=== PATIENT | male | born 1935 | race Caucasian/White ===

== ENCOUNTER → 2016-06-06 | Outpatient (CLI) | payer MEDICARE ==
[~2016-06-06] MED LIST: AMLO5TAB2 PO; ATOR20TA9 PO; BENA40TA2 PO; DICY10CA3 PO; FLUT9.9S NAS; FURO40TA6 PO; HYDR-3240 PO; INSU100I13 SQ-INSULIN; METF500T4 PO; METO10TA82 PO; METO25TA35 PO; OMNIPAQUE 350 MG/ML, 75ML BOTTLE ONE; PANT40TA5 PO; PIOG45TA4 PO; PROM50TA4 PO; SERT50TA5 PO; TAMS0.4C2 PO
== END | disposition home or self-care (01) ==
LOC: CFH 12:52
PROVIDERS: ATTEND Nurse Practitioner
DX: R91.1 Solitary pulmonary nodule (principal); M50.33 Other cervical disc degeneration, cervicothoracic region; K57.30 Diverticulosis of large intestine without perforation or abscess without bleeding; D73.89 Other diseases of spleen; M25.78 Osteophyte, vertebrae; Z90.49 Acquired absence of other specified parts of digestive tract
CPT/HCPCS: 71260; Q9967

== ENCOUNTER → 2016-06-22 | Outpatient (CLI) | payer MEDICARE ==
[~2016-06-22] MED LIST changes: -OMNIPAQUE 350 MG/ML, 75ML BOTTLE ONE
== END | disposition home or self-care (01) ==
LOC: CFH 09:33
PROVIDERS: ATTEND Internal Medicine Gastroenterology
DX: R10.13 Epigastric pain (principal); K31.84 Gastroparesis; R11.0 Nausea; K52.9 Noninfective gastroenteritis and colitis, unspecified; E11.9 Type 2 diabetes mellitus without complications; I50.9 Heart failure, unspecified; M47.896 Other spondylosis, lumbar region
CPT/HCPCS: 74000

== ENCOUNTER 2017-02-03 10:27 | Inpatient (IN) | payer MEDICARE ==
[~2017-02-03] VITALS: Ht 177.8 cm; Wt 79.6 kg
[2017-02-03] MEDS ORDERED: SODIUM CHLORIDE FLUSH 10ML SYR IVF ONE (11:00)
[2017-02-03] MEDS ORDERED: RANI150T4 PO (11:07)
[2017-02-03] MEDS ORDERED: CARV12.52 PO (11:07)
[2017-02-03] MEDS ORDERED: LISI40TA PO (11:07)
[2017-02-03 11:31] LABS: HEMATOCRIT 49.5 % (39.2-51.8); HEMOGLOBIN 16.4 g/dL (13.7-18.0); WHITE BLOOD COUNT 6.8 x10^3/uL (3.4-10)
[2017-02-03 11:36] LABS: ASPARTATE AMINO TRANSFERASE 17 U/L (15-37); BLOOD UREA NITROGEN 12 mg/dL (7-18)
[2017-02-03 11:40] LABS: IS PT STATUS REG ER OR PRE ER? YES
[2017-02-03] MEDS ORDERED: MAALOX/HYOSCYAMINE/LIDOCAINE 45 ML BTL ONE (12:07)
[2017-02-03] MEDS ORDERED: MAALOX/HYOSCYAMINE/LIDOCAINE 45 ML BTL PO ONE (12:30)
[2017-02-03] MEDS ORDERED: OMNIPAQUE 350 MG/ML, 100ML BOTTLE ONE (13:15)
[2017-02-03] MEDS ORDERED: HEPARIN 25,000 UNITS/500ML PMX 500 ML ONE (13:54)
[2017-02-03] MEDS ORDERED: HEPARIN 5,000 UNITS/ML, 1ML ONE (13:54)
[2017-02-03] MEDS ORDERED: HEPARIN 5,000 UNITS/ML, 1ML IV ONE (14:00)
[2017-02-03] MEDS: HEPARIN 25,000 UNITS/500ML PMX 500 ML IV PRN (14:29)
[2017-02-03 15:41] VITALS: BP 156/85
[2017-02-03] MEDS ORDERED: LABETALOL 5MG/ML, 20ML IVPush PRN (16:00)
[2017-02-03] MEDS ORDERED: DEXTROSE 4 GM TAB.CHEW PO PRN (16:00)
[2017-02-03] MEDS ORDERED: morphine SULFATE 10 MG/ML, 1ML IVPush PRN (16:00)
[2017-02-03] MEDS ORDERED: POLYETHYLENE GLYCOL 17 GM PACKET PO PRN (16:00)
[2017-02-03] MEDS ORDERED: ENALAPRILAT 1.25 MG/ML, 2ML IVPush PRN (16:00)
[2017-02-03] MEDS ORDERED: ACETAMINOPHEN 325 MG TABLET PO PRN (16:00)
[2017-02-03] MEDS ORDERED: DEXTROSE 50%, 50ML SYRINGE IVPush PRN (16:00)
[2017-02-03] MEDS ORDERED: GLUCAGON 1 MG IM PRN (16:00)
[2017-02-03] MEDS: DICYCLOMINE 10 MG CAPSULE PO SCH ×2 (17:36→21:43)
[2017-02-03] MEDS: SUCRALFATE 1 GM/10 ML UDC PO SCH ×2 (17:36→21:43)
[2017-02-03] MEDS: HYDROcodone/APAP 5/325 TABLET PO PRN ×2 (18:49→23:31)
[2017-02-03] MEDS: INSULIN ASPART 100 UNITS/ML, PEN SQ-INSULIN SCH ×2 (18:50→21:39)
[2017-02-03 20:56] VITALS: BP 152/75
[2017-02-03] MEDS: INSULIN GLARGINE HUM REC ANLOG 20 UNIT SQ-INSULIN SCH (21:00)
[2017-02-03] MEDS: CARVEDILOL 12.5 MG TABLET PO SCH (21:00)
[2017-02-03] MEDS: HEPARIN 5,000 UNITS/ML, 1ML IV PRN (21:33)
[2017-02-03] MEDS: ATORVASTATIN 20 MG TABLET PO SCH (21:42)
[2017-02-03] MEDS: SODIUM CHLORIDE FLUSH 10ML SYR IVF SCH (21:43)
[2017-02-03] MEDS: PROMETHAZINE 25MG TABLET PO PRN (21:46)
[2017-02-03] MEDS: MAALOX/HYOSCYAMINE/LIDOCAINE 45 ML BTL PO PRN (23:37)
[2017-02-04 02:51] VITALS: BP 123/62
[2017-02-04 04:10] LABS: HEMATOCRIT 44.4 % (39.2-51.8); HEMOGLOBIN 14.9 g/dL (13.7-18.0); WHITE BLOOD COUNT 6.9 x10^3/uL (3.4-10)
[2017-02-04 04:17] LABS: BLOOD UREA NITROGEN 15 mg/dL (7-18)
[2017-02-04 04:21] LABS: ASPARTATE AMINO TRANSFERASE 17 U/L (15-37)
[2017-02-04] MEDS: HEPARIN 5,000 UNITS/ML, 1ML IV PRN ×2 (04:50→12:01)
[2017-02-04] MEDS ORDERED: POTASSIUM CHLORIDE 40 MEQ in SODIUM CHLORIDE 0.9% 500 ML IV ONE (08:00)
[2017-02-04 08:07] VITALS: BP 145/79
[2017-02-04] MEDS: SUCRALFATE 1 GM/10 ML UDC PO SCH ×4 (08:10→23:03)
[2017-02-04] MEDS: PANTOPROZOLE 40MG TABLET PO SCH (08:10)
[2017-02-04] MEDS: INSULIN ASPART 100 UNITS/ML, PEN SQ-INSULIN SCH ×4 (08:35→23:05)
[2017-02-04] MEDS: ONDANSETRON 2MG/ML, 2ML IVPush PRN ×2 (08:37→16:28)
[2017-02-04] MEDS: LISINOPRIL 20 MG TABLET PO SCH (08:42)
[2017-02-04] MEDS: DOCUSATE 100 MG CAPSULE PO SCH (08:42)
[2017-02-04] MEDS: DICYCLOMINE 10 MG CAPSULE PO SCH ×3 (08:42→23:04)
[2017-02-04] MEDS: TAMSULOSIN 0.4 MG CAP.ER.24H PO SCH (08:43)
[2017-02-04] MEDS: AMLODIPINE 5 MG TABLET PO SCH (08:43)
[2017-02-04] MEDS: SODIUM CHLORIDE FLUSH 10ML SYR IVF SCH ×2 (08:44→23:03)
[2017-02-04] MEDS: FLUTICASONE NASAL SPRAY 16GM NAS SCH (09:00)
[2017-02-04] MEDS: CARVEDILOL 12.5 MG TABLET PO SCH ×2 (09:00→23:04)
[2017-02-04] MEDS: HEPARIN 25,000 UNITS/500ML PMX 500 ML IV PRN (13:55)
[2017-02-04 14:09] VITALS: BP 123/62
[2017-02-04] MEDS: Enoxaparin 1 mg/kg protocol SQ SCH (15:30)
[2017-02-04] MEDS: ENOXAPARIN 80 MG/0.8 ML SQ SCH (16:26)
[2017-02-04] MEDS ORDERED: metFORMIN 500 MG TABLET PO SCH (17:00)
[2017-02-04] MEDS: HYDROcodone/APAP 5/325 TABLET PO PRN ×2 (18:15→23:04)
[2017-02-04 20:00] VITALS: BP 154/73
[2017-02-04] MEDS: INSULIN GLARGINE HUM REC ANLOG 20 UNIT SQ-INSULIN SCH (23:04)
[2017-02-04] MEDS: ATORVASTATIN 20 MG TABLET PO SCH (23:04)
[2017-02-05 02:00] VITALS: BP 136/67
[2017-02-05] MEDS: Enoxaparin 1 mg/kg protocol SQ SCH ×2 (03:30→15:30)
[2017-02-05] MEDS: ENOXAPARIN 80 MG/0.8 ML SQ SCH ×2 (04:35→16:52)
[2017-02-05 05:44] LABS: HEMATOCRIT 42.3 % (39.2-51.8); HEMOGLOBIN 14.5 g/dL (13.7-18.0); WHITE BLOOD COUNT 5.5 x10^3/uL (3.4-10)
[2017-02-05 05:51] LABS: ASPARTATE AMINO TRANSFERASE 14 U/L (15-37); BLOOD UREA NITROGEN 13 mg/dL (7-18)
[2017-02-05] MEDS: SUCRALFATE 1 GM/10 ML UDC PO SCH ×4 (08:03→20:35)
[2017-02-05] MEDS: DOCUSATE 100 MG CAPSULE PO SCH (08:03)
[2017-02-05] MEDS: PANTOPROZOLE 40MG TABLET PO SCH (08:03)
[2017-02-05] MEDS: DICYCLOMINE 10 MG CAPSULE PO SCH ×3 (08:03→20:36)
[2017-02-05] MEDS: ONDANSETRON 2MG/ML, 2ML IVPush PRN ×2 (08:03→21:39)
[2017-02-05] MEDS: LISINOPRIL 20 MG TABLET PO SCH (08:03)
[2017-02-05] MEDS: INSULIN ASPART 100 UNITS/ML, PEN SQ-INSULIN SCH ×4 (08:04→20:35)
[2017-02-05] MEDS: AMLODIPINE 5 MG TABLET PO SCH (08:04)
[2017-02-05] MEDS: TAMSULOSIN 0.4 MG CAP.ER.24H PO SCH (08:04)
[2017-02-05] MEDS: FLUTICASONE NASAL SPRAY 16GM NAS SCH (09:00)
[2017-02-05 09:05] VITALS: BP 144/82
[2017-02-05] MEDS: CARVEDILOL 12.5 MG TABLET PO SCH ×2 (10:27→20:36)
[2017-02-05] MEDS: SODIUM CHLORIDE FLUSH 10ML SYR IVF SCH ×2 (10:27→20:37)
[2017-02-05 13:52] VITALS: BP 132/75
[2017-02-05] MEDS: BISACODYL 10 MG SUPP PR PRN (15:02)
[2017-02-05] MEDS: HYDROcodone/APAP 5/325 TABLET PO PRN ×2 (17:02→21:31)
[2017-02-05 20:23] VITALS: BP 172/87
[2017-02-05] MEDS: INSULIN GLARGINE HUM REC ANLOG 20 UNIT SQ-INSULIN SCH (20:35)
[2017-02-05] MEDS: ATORVASTATIN 20 MG TABLET PO SCH (20:36)
[2017-02-06 02:40] VITALS: BP 149/84
[2017-02-06] MEDS: ENOXAPARIN 80 MG/0.8 ML SQ SCH ×2 (05:11→17:12)
[2017-02-06] MEDS: INSULIN ASPART 100 UNITS/ML, PEN SQ-INSULIN SCH ×4 (07:00→20:33)
[2017-02-06 07:34] VITALS: BP 165/76
[2017-02-06] MEDS: ONDANSETRON 2MG/ML, 2ML IVPush PRN (08:06)
[2017-02-06] MEDS: TAMSULOSIN 0.4 MG CAP.ER.24H PO SCH (09:00)
[2017-02-06] MEDS ORDERED: REGADENOSON 0.4 MG/5 ML SYRINGE ONE (09:30)
[2017-02-06] MEDS: HYDROcodone/APAP 5/325 TABLET PO PRN ×3 (11:23→21:22)
[2017-02-06] MEDS: SUCRALFATE 1 GM/10 ML UDC PO SCH ×4 (11:24→20:33)
[2017-02-06] MEDS: PROMETHAZINE 25MG TABLET PO PRN ×2 (11:24→17:18)
[2017-02-06] MEDS: FLUTICASONE NASAL SPRAY 16GM NAS SCH (11:24)
[2017-02-06] MEDS: LISINOPRIL 20 MG TABLET PO SCH (11:25)
[2017-02-06] MEDS: DICYCLOMINE 10 MG CAPSULE PO SCH ×3 (11:25→20:33)
[2017-02-06] MEDS: DOCUSATE 100 MG CAPSULE PO SCH (11:26)
[2017-02-06] MEDS: CARVEDILOL 12.5 MG TABLET PO SCH (11:26)
[2017-02-06] MEDS: AMLODIPINE 5 MG TABLET PO SCH (11:26)
[2017-02-06] MEDS: SODIUM CHLORIDE FLUSH 10ML SYR IVF SCH ×2 (11:27→20:34)
[2017-02-06] MEDS: PANTOPROZOLE 40MG TABLET PO SCH (11:27)
[2017-02-06 15:17] VITALS: BP 147/67
[2017-02-06] MEDS: CARVEDILOL 25 MG TABLET PO SCH (17:12)
[2017-02-06 19:23] VITALS: BP_SYST 56
[2017-02-06] MEDS: ATORVASTATIN 20 MG TABLET PO SCH (20:33)
[2017-02-06] MEDS: INSULIN GLARGINE HUM REC ANLOG 20 UNIT SQ-INSULIN SCH (20:34)
[2017-02-07 03:30] VITALS: BP 143/75
[2017-02-07] MEDS: ENOXAPARIN 80 MG/0.8 ML SQ SCH ×3 (05:19→21:12)
[2017-02-07] MEDS: CARVEDILOL 25 MG TABLET PO SCH ×3 (05:19→23:50)
[2017-02-07 05:55] LABS: HEMATOCRIT 42.2 % (39.2-51.8); HEMOGLOBIN 14.3 g/dL (13.7-18.0); WHITE BLOOD COUNT 5.9 x10^3/uL (3.4-10)
[2017-02-07 06:14] LABS: BLOOD UREA NITROGEN 13 mg/dL (7-18)
[2017-02-07] MEDS: DOCUSATE 100 MG CAPSULE PO SCH (07:42)
[2017-02-07] MEDS: AMLODIPINE 5 MG TABLET PO SCH (07:42)
[2017-02-07] MEDS: TAMSULOSIN 0.4 MG CAP.ER.24H PO SCH (07:42)
[2017-02-07] MEDS: INSULIN ASPART 100 UNITS/ML, PEN SQ-INSULIN SCH ×4 (07:42→20:46)
[2017-02-07] MEDS: PANTOPROZOLE 40MG TABLET PO SCH (07:42)
[2017-02-07] MEDS: FLUTICASONE NASAL SPRAY 16GM NAS SCH (07:43)
[2017-02-07] MEDS: LISINOPRIL 20 MG TABLET PO SCH (07:43)
[2017-02-07] MEDS: SUCRALFATE 1 GM/10 ML UDC PO SCH ×5 (07:43→23:51)
[2017-02-07] MEDS: DICYCLOMINE 10 MG CAPSULE PO SCH ×3 (07:43→20:45)
[2017-02-07] MEDS: SODIUM CHLORIDE FLUSH 10ML SYR IVF SCH ×2 (07:43→20:45)
[2017-02-07 08:00] VITALS: BP 141/76
[2017-02-07 14:35] VITALS: BP 112/59
[2017-02-07] MEDS: HYDROcodone/APAP 5/325 TABLET PO PRN ×2 (14:47→20:45)
[2017-02-07 20:01] VITALS: BP 121/61
[2017-02-07] MEDS: INSULIN GLARGINE HUM REC ANLOG 20 UNIT SQ-INSULIN SCH (20:39)
[2017-02-07] MEDS: ATORVASTATIN 20 MG TABLET PO SCH (20:48)
[2017-02-08 01:42] VITALS: BP 154/71
[2017-02-08 05:34] LABS: HEMATOCRIT 44.4 % (39.2-51.8); WHITE BLOOD COUNT 5.9 x10^3/uL (3.4-10)
[2017-02-08 05:48] LABS: ASPARTATE AMINO TRANSFERASE 37 U/L (15-37); BLOOD UREA NITROGEN 12 mg/dL (7-18)
[2017-02-08] MEDS: INSULIN ASPART 100 UNITS/ML, PEN SQ-INSULIN SCH ×4 (07:00→22:10)
[2017-02-08] MEDS: PANTOPROZOLE 40MG TABLET PO SCH (07:30)
[2017-02-08 07:41] VITALS: BP 154/83
[2017-02-08] MEDS: SODIUM CHLORIDE FLUSH 10ML SYR IVF SCH ×2 (08:53→22:11)
[2017-02-08] MEDS: DICYCLOMINE 10 MG CAPSULE PO SCH ×3 (08:53→22:09)
[2017-02-08] MEDS: FLUTICASONE NASAL SPRAY 16GM NAS SCH (08:53)
[2017-02-08] MEDS: AMLODIPINE 5 MG TABLET PO SCH (08:54)
[2017-02-08] MEDS: TAMSULOSIN 0.4 MG CAP.ER.24H PO SCH (08:54)
[2017-02-08] MEDS: LISINOPRIL 20 MG TABLET PO SCH (08:54)
[2017-02-08] MEDS: DOCUSATE 100 MG CAPSULE PO SCH (08:54)
[2017-02-08] MEDS ORDERED: POTASSIUM CHLORIDE 40 MEQ in SODIUM CHLORIDE 0.9% 500 ML IV ONE (09:00)
[2017-02-08] MEDS ORDERED: PROPOFOL 10 MG/ML, 20ML ONE (09:08)
[2017-02-08] MEDS ORDERED: ROCURONIUM 10 MG/ML,10ML ONE (09:08)
[2017-02-08] MEDS ORDERED: SUCCINYLCHOLINE 20 MG/ML, 10ML ONE (09:10)
[2017-02-08] MEDS ORDERED: FENTANYL PF 100 MCG/2ML ONE (09:15)
[2017-02-08] MEDS ORDERED: ACETAMINOPHEN 325 MG TABLET PO PRN (09:30)
[2017-02-08] MEDS ORDERED: HYDROcodone/APAP 7.5-325MG/15ML UDC PO PRN (09:30)
[2017-02-08] MEDS ORDERED: FENTANYL PF 100 MCG/2ML IV PRN (09:30)
[2017-02-08] MEDS ORDERED: HYDROmorphone 1 MG/ML, 1ML IV PRN (09:30)
[2017-02-08] MEDS ORDERED: hydrALAzine 20 MG/ML, 1ML IV PRN (09:30)
[2017-02-08] MEDS ORDERED: METOCLOPRAMIDE 5 MG/ML, 2ML IV PRN (09:30)
[2017-02-08] MEDS ORDERED: ALBUTEROL SULFATE 2.5 MG/3 ML NPPB PRN (09:30)
[2017-02-08] MEDS ORDERED: LABETALOL 5MG/ML, 20ML IV PRN (09:30)
[2017-02-08] MEDS ORDERED: OXYcodone 5 MG/5 ML ORAL.SOL UDC PO PRN (09:30)
[2017-02-08] MEDS ORDERED: METOPROLOL 1 MG/ML, 5ML IV PRN (09:30)
[2017-02-08] MEDS ORDERED: EPHEDRINE 50 MG/ML, 1ML IVPush PRN (09:30)
[2017-02-08] MEDS ORDERED: ONDANSETRON 2MG/ML, 2ML IVPush PRN (09:30)
[2017-02-08] MEDS ORDERED: EPINEPHRINE 1 MG/ML, 1ML ONE (10:23)
[2017-02-08] MEDS ORDERED: ONDANSETRON 2MG/ML, 2ML ONE (10:24)
[2017-02-08] MEDS ORDERED: DEXAMETHASONE 4 MG/ML, 1ML ONE (10:24)
[2017-02-08] MEDS ORDERED: GLYCOPYRROLATE 0.4 MG/2 ML, 2ML ONE ×2 (10:24)
[2017-02-08 11:39] VITALS: BP 143/75
[2017-02-08] MEDS: SUCRALFATE 1 GM/10 ML UDC PO SCH ×3 (11:51→22:10)
[2017-02-08 15:21] VITALS: BP 164/91
[2017-02-08] MEDS: ENOXAPARIN 80 MG/0.8 ML SQ SCH (17:05)
[2017-02-08] MEDS: CARVEDILOL 25 MG TABLET PO SCH (17:05)
[2017-02-08] MEDS: HYDROcodone/APAP 5/325 TABLET PO PRN ×2 (17:14→22:09)
[2017-02-08 17:58] VITALS: BP 152/73
[2017-02-08 19:50] VITALS: BP 146/81
[2017-02-08] MEDS: INSULIN GLARGINE HUM REC ANLOG 20 UNIT SQ-INSULIN SCH (21:00)
[2017-02-08] MEDS: ATORVASTATIN 20 MG TABLET PO SCH (22:12)
[2017-02-09 02:04] VITALS: BP 136/65
[2017-02-09] MEDS: ENOXAPARIN 80 MG/0.8 ML SQ SCH ×2 (05:22→18:07)
[2017-02-09] MEDS: CARVEDILOL 25 MG TABLET PO SCH ×2 (06:31→18:05)
[2017-02-09] MEDS: SUCRALFATE 1 GM/10 ML UDC PO SCH ×4 (06:31→21:00)
[2017-02-09] MEDS: INSULIN ASPART 100 UNITS/ML, PEN SQ-INSULIN SCH ×4 (08:09→21:28)
[2017-02-09] MEDS: DOCUSATE 100 MG CAPSULE PO SCH ×2 (09:00→15:03)
[2017-02-09] MEDS: TAMSULOSIN 0.4 MG CAP.ER.24H PO SCH (09:03)
[2017-02-09] MEDS: DICYCLOMINE 10 MG CAPSULE PO SCH ×3 (09:03→21:28)
[2017-02-09] MEDS: AMLODIPINE 5 MG TABLET PO SCH (09:03)
[2017-02-09] MEDS: FLUTICASONE NASAL SPRAY 16GM NAS SCH (09:04)
[2017-02-09] MEDS: PANTOPROZOLE 40MG TABLET PO SCH (09:04)
[2017-02-09] MEDS: SODIUM CHLORIDE FLUSH 10ML SYR IVF SCH ×2 (09:04→21:28)
[2017-02-09] MEDS: LISINOPRIL 20 MG TABLET PO SCH (09:04)
[2017-02-09 09:12] VITALS: BP 137/71
[2017-02-09] MEDS ORDERED: HEPARIN 5,000 UNITS/ML, 1ML IV PRN (12:30)
[2017-02-09] MEDS ORDERED: HEPARIN 5,000 UNITS/ML, 1ML IV ONE (12:30)
[2017-02-09] MEDS ORDERED: HEPARIN 25,000 UNITS/500ML PMX 500 ML IV PRN (12:30)
[2017-02-09 13:08] LABS: HEMOGLOBIN 16.2 g/dL (13.7-18.0); WHITE BLOOD COUNT 8.6 x10^3/uL (3.4-10)
[2017-02-09 13:14] LABS: ANTI-Xa-UNFRACTIONATED HEP 0.29 IU/mL (0.30-0.70)
[2017-02-09 13:19] LABS: ASPARTATE AMINO TRANSFERASE 30 U/L (15-37); BLOOD UREA NITROGEN 16 mg/dL (7-18)
[2017-02-09 14:38] VITALS: BP 144/71
[2017-02-09] MEDS: HYDROcodone/APAP 5/325 TABLET PO PRN ×2 (17:05→21:36)
[2017-02-09] MEDS ORDERED: WARFARIN 10 MG TABLET PO-COUM SCH (18:00)
[2017-02-09 19:05] VITALS: BP 124/67
[2017-02-09] MEDS: INSULIN GLARGINE HUM REC ANLOG 20 UNIT SQ-INSULIN SCH (21:00)
[2017-02-09] MEDS: ONDANSETRON 2MG/ML, 2ML IVPush PRN (21:27)
[2017-02-09] MEDS: ATORVASTATIN 20 MG TABLET PO SCH (21:28)
[2017-02-09] MEDS: BISACODYL 10 MG SUPP PR PRN (21:35)
[2017-02-10 02:02] VITALS: BP 150/79
[2017-02-10] MEDS: CARVEDILOL 25 MG TABLET PO SCH ×2 (05:42→16:58)
[2017-02-10] MEDS: ENOXAPARIN 80 MG/0.8 ML SQ SCH ×2 (05:43→16:58)
[2017-02-10] MEDS: FLUTICASONE NASAL SPRAY 16GM NAS SCH (09:00)
[2017-02-10] MEDS: SUCRALFATE 1 GM/10 ML UDC PO SCH ×4 (09:10→20:30)
[2017-02-10] MEDS: LISINOPRIL 20 MG TABLET PO SCH (09:14)
[2017-02-10] MEDS: PANTOPROZOLE 40MG TABLET PO SCH (09:14)
[2017-02-10] MEDS: DICYCLOMINE 10 MG CAPSULE PO SCH ×3 (09:14→20:30)
[2017-02-10] MEDS: INSULIN ASPART 100 UNITS/ML, PEN SQ-INSULIN SCH ×4 (09:14→20:32)
[2017-02-10] MEDS: SODIUM CHLORIDE FLUSH 10ML SYR IVF SCH ×2 (09:15→20:15)
[2017-02-10] MEDS: ONDANSETRON 2MG/ML, 2ML IVPush PRN ×2 (09:15→20:31)
[2017-02-10] MEDS: TAMSULOSIN 0.4 MG CAP.ER.24H PO SCH (09:15)
[2017-02-10] MEDS: AMLODIPINE 5 MG TABLET PO SCH (09:15)
[2017-02-10 11:21] VITALS: BP 147/71
[2017-02-10 14:11] VITALS: BP 141/60
[2017-02-10] MEDS: HYDROcodone/APAP 5/325 TABLET PO PRN ×2 (15:20→20:30)
[2017-02-10] MEDS ORDERED: WARFARIN 7.5 MG TABLET PO-COUM ONE (18:00)
[2017-02-10 18:34] VITALS: BP 124/59
[2017-02-10] MEDS: ATORVASTATIN 20 MG TABLET PO SCH (20:30)
[2017-02-10] MEDS: INSULIN GLARGINE HUM REC ANLOG 20 UNIT SQ-INSULIN SCH (20:32)
[2017-02-10] MEDS: MAALOX/HYOSCYAMINE/LIDOCAINE 45 ML BTL PO PRN (23:32)
[2017-02-10] MEDS: PROMETHAZINE 25MG TABLET PO PRN (23:32)
[2017-02-11 03:24] VITALS: BP 166/75
[2017-02-11 04:20] LABS: HEMATOCRIT 43.3 % (39.2-51.8); HEMOGLOBIN 14.4 g/dL (13.7-18.0); WHITE BLOOD COUNT 5.9 x10^3/uL (3.4-10)
[2017-02-11] MEDS: CARVEDILOL 25 MG TABLET PO SCH (05:14)
[2017-02-11] MEDS: ENOXAPARIN 80 MG/0.8 ML SQ SCH (05:14)
[2017-02-11] MEDS ORDERED: CARV25TA12 PO (06:59)
[2017-02-11] MEDS ORDERED: WARF5TAB7 PO (06:59)
[2017-02-11 07:11] VITALS: BP 160/76
[2017-02-11] MEDS: TAMSULOSIN 0.4 MG CAP.ER.24H PO SCH (07:49)
[2017-02-11] MEDS: DICYCLOMINE 10 MG CAPSULE PO SCH (07:49)
[2017-02-11] MEDS: DOCUSATE 100 MG CAPSULE PO SCH (07:49)
[2017-02-11] MEDS: SUCRALFATE 1 GM/10 ML UDC PO SCH (07:49)
[2017-02-11] MEDS: SODIUM CHLORIDE FLUSH 10ML SYR IVF SCH (07:50)
[2017-02-11] MEDS: LISINOPRIL 20 MG TABLET PO SCH (07:50)
[2017-02-11] MEDS: PANTOPROZOLE 40MG TABLET PO SCH (07:50)
[2017-02-11] MEDS: AMLODIPINE 5 MG TABLET PO SCH (07:50)
[2017-02-11] MEDS: FLUTICASONE NASAL SPRAY 16GM NAS SCH (07:51)
[2017-02-11] MEDS: INSULIN ASPART 100 UNITS/ML, PEN SQ-INSULIN SCH (07:54)
[2017-02-11] MEDS ORDERED: WARFARIN 3 MG TABLET PO-COUM ONE (18:00)
== END 2017-02-11 10:54 | disposition home or self-care (01) | DRG 435 ==
LOC: ED 13:39 → EDIP 13:47 → 3NW 14:30 → 4WST 17:48 → 3NW 02-10 19:17
PROVIDERS: ADMIT Internal Medicine; ATTEND Internal Medicine
PROC: BF47ZZZ Ultrasonography of Pancreas (ICD-10-PCS; 2017-02-08)
PROC: 0FBG3ZX Excision of Pancreas, Percutaneous Approach, Diagnostic (ICD-10-PCS; 2017-02-08)
PROC: 0DJ08ZZ Inspection of Upper Intestinal Tract, Via Natural or Artificial Opening Endoscopic (ICD-10-PCS; principal; 2017-02-08 09:00)
DX: C25.9 Malignant neoplasm of pancreas, unspecified (principal); I81 Portal vein thrombosis; E11.43 Type 2 diabetes mellitus with diabetic autonomic (poly)neuropathy; D68.59 Other primary thrombophilia; I42.9 Cardiomyopathy, unspecified; K31.84 Gastroparesis; I11.0 Hypertensive heart disease with heart failure; I50.42 Chronic combined systolic (congestive) and diastolic (congestive) heart failure; K86.89 Other specified diseases of pancreas; R74.8 Abnormal levels of other serum enzymes; R00.8 Other abnormalities of heart beat; K21.9 Gastro-esophageal reflux disease without esophagitis; R13.10 Dysphagia, unspecified; B96.81 Helicobacter pylori [H. pylori] as the cause of diseases classified elsewhere; R00.1 Bradycardia, unspecified; K22.8 Other specified diseases of esophagus; H91.90 Unspecified hearing loss, unspecified ear; Z87.891 Personal history of nicotine dependence; Z82.49 Family history of ischemic heart disease and other diseases of the circulatory system; Z79.4 Long term (current) use of insulin; Z87.11 Personal history of peptic ulcer disease; Z90.49 Acquired absence of other specified parts of digestive tract; Z79.899 Other long term (current) drug therapy
CPT/HCPCS: 36415; 71010; 71275; 74177; 78452; 80048; 80053; 82962; 83605; 83690; 83735; 83880; 84100; 84484; 85025; 85520; 85610; 85730; 86301; 86677; 88172; 88173; 88307; 93005; 93017; 93306; 96374; J0171; J1100; J1644; J1650; J1815; J2405; J2704; J2785; J3010; J3480; Q0169; Q9967; A9502; C9898; J0330; J7040

== ENCOUNTER → 2017-02-24 | Outpatient (CLI) | payer MEDICARE ==
[~2017-02-24] MED LIST changes: +CARV12.52 PO; +CARV25TA12 PO; +LISI40TA PO; +RANI150T4 PO; +WARF5TAB7 PO
== END | disposition home or self-care (01) ==
LOC: PETCFH 09:19
PROVIDERS: ATTEND Internal Medicine
DX: C25.9 Malignant neoplasm of pancreas, unspecified (principal)
CPT/HCPCS: 78306; A9503

== ENCOUNTER → 2017-10-12 | Outpatient (CLI) | payer MEDICARE ==
[~2017-10-12] MED LIST changes: -BENA40TA2 PO; +BENA40TA3 PO; +GADOBUTROL 7.5 MMOL/7.5 ML PFS ONE; -METF500T4 PO; +METF500T5 PO; +WARF-36 PO; -WARF5TAB7 PO
== END | disposition home or self-care (01) ==
LOC: RAD 11:52
PROVIDERS: ATTEND Specialist
DX: C22.1 Intrahepatic bile duct carcinoma (principal); G31.9 Degenerative disease of nervous system, unspecified; R90.82 White matter disease, unspecified; I67.82 Cerebral ischemia; I63.9 Cerebral infarction, unspecified; D45 Polycythemia vera; K86.9 Disease of pancreas, unspecified; R42 Dizziness and giddiness; R53.1 Weakness
CPT/HCPCS: 70553; A9585

== ENCOUNTER 2017-11-09 09:55 | Inpatient (IN) | payer MEDICARE ==
[~2017-11-09] VITALS: Ht 177.8 cm; Wt 80.7 kg
[~2017-11-09 09:55] MED LIST changes: -GADOBUTROL 7.5 MMOL/7.5 ML PFS ONE
[2017-11-09] MEDS ORDERED: SODIUM CHLORIDE FLUSH 10ML SYR IVF ONE (10:30)
[2017-11-09 11:38] LABS: BASOPHILS # (AUTO) 0.02 x10^3/uL (0-0.1); BASOPHILS % (AUTO) 1 % (0-1); EOSINOPHILS # (AUTO) 0.06 x10^3/uL (0-0.4); EOSINOPHILS % (AUTO) 1 % (1-7); LYMPHOCYTES # (AUTO) 0.68 x10^3/uL (1-3.4); LYMPHOCYTES % (AUTO) 16 % (22-44); MD NO; MEAN CORPUSCULAR HEMOGLOBIN 30.4 pg (27.5-34.5); MEAN CORPUSCULAR HGB CONC 33.3 g/dL (33.2-36.2); MEAN CORPUSCULAR VOLUME 91.1 fL (81-97); MEAN PLATELET VOLUME 8.9 fL (7.4-10.4); MONOCYTES # (AUTO) 0.43 x10^3/uL (0.2-0.8); MONOCYTES % (AUTO) 10 % (2-9); NEUTROPHILS % (AUTO) 72 % (42-75); PLATELET COUNT 160 x10^3/uL (130-400); RED BLOOD COUNT 4.27 x10^6/uL (4.38-5.82); RED CELL DISTRIBUTION WIDTH 16.9 % (9.4-14.8)
[2017-11-09 11:52] LABS: ALANINE AMINOTRANSFERASE 18 U/L (12-78); ALBUMIN 3.4 g/dL (3.4-5.0); ANION GAP 8 mmol/L (5-15); CALCIUM 8.1 mg/dL (8.5-10.1); CHLORIDE 102 mmol/L (98-107); CREATININE 0.78 mg/dL (0.7-1.3)
[2017-11-09 11:53] LABS: INTERNATIONAL NORMALIZED RATIO 1.23 (0.93-1.1); PROTHROMBIN TIME 12.6 Seconds (9.6-11.5)
[2017-11-09 11:57] LABS: ALKALINE PHOSPHATASE 120 U/L (45-117); BILIRUBIN,TOTAL 0.5 mg/dL (0.2-1.0); TOTAL PROTEIN 6.3 g/dL (6.4-8.2); TROPONIN I 0.029 ng/mL (0.000-0.045)
[2017-11-09] MEDS ORDERED: POTASSIUM CHLORIDE 20 MEQ TAB.ER.PRT PO ONE ×2 (12:00→16:00)
[2017-11-09] MEDS ORDERED: FUROSEMIDE 40 MG/4 ML IV ONE (12:30)
[2017-11-09] MEDS ORDERED: SODIUM CHLORIDE FLUSH 10ML SYR IVF PRN (12:30)
[2017-11-09] MEDS ORDERED: OXYC10TA6 PO (12:37)
[2017-11-09] MEDS ORDERED: HYDR-3341 PO (12:37)
[2017-11-09] MEDS ORDERED: FURO20TA3 PO (12:37)
[2017-11-09] MEDS ORDERED: POTA10TA11 PO (12:37)
[2017-11-09] MEDS ORDERED: SERT50TA PO (12:37)
[2017-11-09] MEDS ORDERED: ONDA8TAB16 SL (12:37)
[2017-11-09] MEDS ORDERED: LORA0.5T PO (12:37)
[2017-11-09] MEDS ORDERED: CARV12.543 PO (12:37)
[2017-11-09] MEDS ORDERED: PANT40TA5 PO (12:37)
[2017-11-09 13:32] VITALS: BP 158/83
[2017-11-09 14:27] VITALS: BP 158/83
[2017-11-09] MEDS ORDERED: morphine SULFATE 10 MG/ML, 1ML IVPush PRN (14:30)
[2017-11-09] MEDS ORDERED: DOCUSATE 100 MG CAPSULE PO PRN (14:30)
[2017-11-09] MEDS ORDERED: GUAIFENESIN/COD200MG-20MG/10ML LIQUID PO PRN (14:30)
[2017-11-09] MEDS ORDERED: hydrALAzine 20 MG/ML, 1ML IVPush PRN (14:30)
[2017-11-09] MEDS ORDERED: LORazepam 0.5MG TABLET PO PRN (14:30)
[2017-11-09] MEDS ORDERED: PROMETHAZINE 25MG TABLET PO PRN (14:30)
[2017-11-09] MEDS ORDERED: TRAZODONE 50MG TABLET PO PRN (14:30)
[2017-11-09] MEDS ORDERED: MAGNESIUM SULFATE PMX 2GM/50ML 50 ML IV ONE (14:30)
[2017-11-09] MEDS ORDERED: ONDANSETRON ODT 8 MG PO PRN (14:30)
[2017-11-09] MEDS: OXYcodone IR 5MG TABLET PO SCH ×2 (15:52→20:03)
[2017-11-09] MEDS: ONDANSETRON 2MG/ML, 2ML IVPush PRN (15:53)
[2017-11-09 16:55] VITALS: BP 158/88
[2017-11-09] MEDS: ENOXAPARIN 40 MG/0.4 ML SQ SCH (16:58)
[2017-11-09] MEDS: DICYCLOMINE 10 MG CAPSULE PO SCH ×2 (16:59→21:44)
[2017-11-09] MEDS: CARVEDILOL 6.25 MG TABLET PO SCH (16:59)
[2017-11-09] MEDS: INSULIN LISPRO 100 UNITS/ML, PEN SQ-INSULIN SCH ×2 (18:06→21:45)
[2017-11-09] MEDS: FUROSEMIDE 40 MG/4 ML IV SCH (18:07)
[2017-11-09 19:42] VITALS: BP 148/75
[2017-11-09 20:14] VITALS: BP_SYST 144; BP_SYST 152; BP_SYST 163; BP_DIAS 68; BP_DIAS 70; BP_DIAS 86
[2017-11-09] MEDS ORDERED: INSULIN GLARGINE 100 UNITS/ML, PEN SQ-INSULIN SCH (21:00)
[2017-11-09] MEDS ORDERED: ATORVASTATIN 10 MG TABLET PO SCH (21:00)
[2017-11-09] MEDS: LISINOPRIL 20 MG TABLET PO SCH (21:44)
[2017-11-10] MEDS: OXYcodone IR 5MG TABLET PO SCH ×2 (02:24→05:19)
[2017-11-10 02:58] VITALS: BP 151/89
[2017-11-10] MEDS: CARVEDILOL 6.25 MG TABLET PO SCH (05:20)
[2017-11-10] MEDS: DICYCLOMINE 10 MG CAPSULE PO SCH ×2 (05:20→11:17)
[2017-11-10 05:47] LABS: BASOPHILS # (AUTO) 0.01 x10^3/uL (0-0.1); BASOPHILS % (AUTO) 0 % (0-1); EOSINOPHILS # (AUTO) 0.05 x10^3/uL (0-0.4); EOSINOPHILS % (AUTO) 1 % (1-7); LYMPHOCYTES # (AUTO) 0.78 x10^3/uL (1-3.4); LYMPHOCYTES % (AUTO) 22 % (22-44); MD NO; MEAN CORPUSCULAR HEMOGLOBIN 29.7 pg (27.5-34.5); MEAN CORPUSCULAR HGB CONC 32.7 g/dL (33.2-36.2); MEAN PLATELET VOLUME 8.9 fL (7.4-10.4); MONOCYTES # (AUTO) 0.48 x10^3/uL (0.2-0.8); MONOCYTES % (AUTO) 13 % (2-9); NEUTROPHILS # (AUTO) 2.25 x10^3/uL (1.8-6.8); NEUTROPHILS % (AUTO) 63 % (42-75); PLATELET COUNT 183 x10^3/uL (130-400); RED CELL DISTRIBUTION WIDTH 16.4 % (9.4-14.8)
[2017-11-10 05:55] LABS: ANION GAP 5 mmol/L (5-15); CALCIUM 8.2 mg/dL (8.5-10.1); CHLORIDE 104 mmol/L (98-107); CREATININE 0.81 mg/dL (0.7-1.3)
[2017-11-10] MEDS: INSULIN LISPRO 100 UNITS/ML, PEN SQ-INSULIN SCH ×2 (07:00→11:40)
[2017-11-10 07:49] VITALS: BP 154/78
[2017-11-10] MEDS: FUROSEMIDE 40 MG/4 ML IV SCH (07:51)
[2017-11-10] MEDS: LISINOPRIL 20 MG TABLET PO SCH (07:52)
[2017-11-10] MEDS ORDERED: SERTRALINE 50MG TABLET PO SCH (09:00)
[2017-11-10] MEDS ORDERED: SPIRONOLACTONE 25 MG TABLET PO SCH (09:00)
[2017-11-10] MEDS ORDERED: POTASSIUM CHLORIDE 20 MEQ TAB.ER.PRT PO SCH ×2 (09:00)
[2017-11-10] MEDS ORDERED: FLUTICASONE NASAL SPRAY 16GM NAS SCH (09:00)
[2017-11-10] MEDS ORDERED: PANTOPROZOLE 40MG TABLET PO SCH (09:00)
[2017-11-10] MEDS: ONDANSETRON 2MG/ML, 2ML IVPush PRN (11:17)
[2017-11-10] MEDS ORDERED: MAGNESIUM SULFATE PMX 2GM/50ML 50 ML IV ONE (11:30)
[2017-11-10] MEDS ORDERED: OXYcodone IR 5MG TABLET PO SCH (12:00)
[2017-11-10] MEDS ORDERED: SPIR25TA PO (12:31)
[2017-11-10] MEDS: ENOXAPARIN 40 MG/0.4 ML SQ SCH (14:18)
== END 2017-11-10 16:26 | disposition home or self-care (01) | DRG 291 ==
LOC: ED 11:31 → EDIP 12:18 → 5SO 13:31 → DCLOUNGE 11-10 16:08
PROVIDERS: ADMIT Hospitalist; ATTEND Hospitalist
DX: I11.0 Hypertensive heart disease with heart failure (principal); E43 Unspecified severe protein-calorie malnutrition; C22.9 Malignant neoplasm of liver, not specified as primary or secondary; C25.9 Malignant neoplasm of pancreas, unspecified; I50.43 Acute on chronic combined systolic (congestive) and diastolic (congestive) heart failure; E11.43 Type 2 diabetes mellitus with diabetic autonomic (poly)neuropathy; E87.6 Hypokalemia; E83.42 Hypomagnesemia; G89.29 Other chronic pain; H91.90 Unspecified hearing loss, unspecified ear; I44.7 Left bundle-branch block, unspecified; I48.2 Chronic atrial fibrillation; K31.84 Gastroparesis; K76.0 Fatty (change of) liver, not elsewhere classified; Z66 Do not resuscitate; Z79.4 Long term (current) use of insulin; Z87.891 Personal history of nicotine dependence; Z99.81 Dependence on supplemental oxygen; Z68.25 Body mass index [BMI] 25.0-25.9, adult
CPT/HCPCS: 36415; 71046; 80048; 80053; 82962; 83690; 83735; 83880; 84100; 84443; 84484; 85025; 85610; 85730; 93005; 99285; J1650; J1940; J2405; J1815; J2270; J3475